=== PATIENT | male | born 1970 | race Caucasian/White ===

== ENCOUNTER 2017-01-10 17:42 | Emergency (ER) | payer OTHER ==
[2017-01-10 17:58] VITALS: RESP 16
--- NOTE | 2017-01-10 18:15 | EDPHY ---
H & P Stated Complaint: syncope Time Seen by Provider: 01/10/17 18:15 - Personal History Current Tetanus Diphtheria and Acellular Pertussis (TDAP): Yes - Medical/Surgical History Hx Asthma: No Hx Chronic Respiratory Disease: No Hx Diabetes: No Hx Cardiac Disease: No Hx Renal Disease: No Hx Cirrhosis: No Hx Alcoholism: No Hx HIV/AIDS: No Hx Splenectomy or Spleen Trauma: No Other PMH: L ACL repair - Social History Smoking Status: Never smoked Constitutional: Initial Vital Signs Temperature (C) 36.5 C 01/10/17 17:55 Heart Rate 81 01/10/17 17:55 Respiratory Rate 16 01/10/17 17:55 Blood Pressure 142/73 H 01/10/17 17:55 O2 Sat (%) 98 01/10/17 17:55 O2 Delivery Mode Room Air Allergies/Adverse Reactions: No Known Allergies Allergy (Verified 01/10/17 17:54) Home Medications: Medication Instructions Recorded NK [No Known Home Meds] 01/10/17 Medical Decision Making ED Course/Re-evaluation: CHIEF COMPLAINT: Syncope HISTORY OF PRESENT ILLNESS: The patient is a 46 y/o male arriving with his after a syncopal event while sitting at an [employer]. He has a history of one previous vasovagal syncope when he stood up quickly while hiking. 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 He regained consciousness quickly and was not confused following the syncope. He denies associated chest pain or dyspnea at any point. He reports he has not eaten or drank much water today and he had a recent left knee surgery about 4 weeks ago. He denies any narcotic pain medication or other medication use. REVIEW OF SYSTEMS: A 10 point review of systems was performed and is negative with the exception of the elements mentioned in the history of present illness. PHYSICAL EXAM: HR, BP, O2 Sat, RR. Temp noted General Appearance: Alert, well hydrated, appropriate, and non-toxic appearing. Head: Atraumatic without scalp tenderness or obvious injury Eyes: Pupils equal, round, reactive to light and accommodation, EOMI, no trauma , no injection. Ears: Clear bilaterally, no perforation, normal landmarks Nose: Atraumatic, no rhinorrhea, clear. Throat: There is no erythema or exudates, no lesions, normal tonsils, mucus membranes moist. Neck: Supple, nontender, no lymphadenopathy. Respiratory: No retractions, no distress, no wheezes, and no accessory muscle use. Lungs are clear to auscultation bilaterally. Cardiovascular: Regular rate and rhythm, no murmurs, rubs, or gallops. Good capillary refill all extremities. Gastrointestinal: Abdomen is soft, nontender, non-distended, no masses, no rebound, no guarding, no peritoneal signs. Musculoskeletal: Left knee incision is clean, dry, and intact; some swelling around knee that patient reports is unchanged; ROM voluntarily limited. Otherwise normal active ROM of all extremities, atraumatic. Neurological: Alert, appropriate, and interactive. The patient has normal DTRs and non-focal cranial nerves, motor, sensory, and cerebellar exam. Skin: No rashes, good turgor, no nodules on palpation. Past medical history: Previous vasovagal syncope Past surgical history: Left knee ACL and meniscus repair 12/13/16 in [place] Family history: noncontributory Social history: at bedside, has daughter DIAGNOSTICS/PROCEDURES/CRITICAL CARE TIME: The 12 lead EKG was interpreted by myself. Sinus rhythm rate 74. See hard copy and/or "tracemaster" electronic copy for interpretation. DIFFERENTIAL DIAGNOSIS: The differential diagnosis for the patient's syncope included but was not limited to vasovagal syncope, arrhythmia, dehydration, cardiogenic causes, neurogenic causes, and blood loss. MEDICAL DECISION MAKING: This is a healthy 46 y/o male who presents in good condition after a reported syncope. Notably, he describes prodromal symptoms prior to episode and has had a similar event once before that was attributed to a vasovagal syncope. His exam is unremarkable except for a healing surgical incision and knee swelling secondary to his recent ACL surgery. Plan for IV, CBC, CHEM, troponin, and Mg. EKG ordered. EKG is unremarkable. Labs show leukocytosis that is likely secondary to his recent surgery. I discussed workup results with him and answered all his questions. He will be discharged home with recommendation to follow up with his PCP as well as return precautions. He is comfortable with this plan. - Data Points Laboratory Results: Laboratory Results 01/10/17 18:37 01/10/17 18:37 01/10/17 01/10/17 18:37 18:37 WBC 15.91 10^3/uL H 10^3/uL (3.80-9.50) RBC 4.51 10^6/uL 10^6/uL (4.40-6.38) Hgb 10.4 g/dL L g/dL (13.7-17.5) Hct 32.9 % L % (40.0-51.0) MCV 72.9 fL L fL (81.5-99.8) MCH 23.1 pg L pg (27.9-34.1) MCHC 31.6 g/dL L g/dL (32.4-36.7) RDW 17.3 % H % (11.5-15.2) Plt Count 387 10^3/uL 10^3/uL (150-400) MPV 8.9 fL fL (8.7-11.7) Neut % (Auto) 78.5 % H % (39.3-74.2) Lymph % (Auto) 11.0 % L % (15.0-45.0) [place] % (Auto) 7.7 % % (4.5-13.0) Eos % (Auto) 2.1 % % (0.6-7.6) Baso % (Auto) 0.4 % % (0.3-1.7) Nucleat RBC Rel Count 0.0 % % (0.0-0.2) Absolute Neuts (auto) 12.50 10^3/uL H 10^3/uL (1.70-6.50) Absolute Lymphs (auto) 1.75 10^3/uL 10^3/uL (1.00-3.00) Absolute Monos (auto) 1.22 10^3/uL H 10^3/uL (0.30-0.80) Absolute Eos (auto) 0.33 10^3/uL 10^3/uL (0.03-0.40) Absolute Basos (auto) 0.06 10^3/uL 10^3/uL (0.02-0.10) Absolute Nucleated RBC 0.00 10^3/uL 10^3/uL (0-0.01) Immature Gran % 0.3 % % (0.0-1.1) Immature Gran # 0.05 10^3/uL 10^3/uL (0.00-0.10) Sodium 137 mEq/L mEq/L (134-144) Potassium 4.2 mEq/L mEq/L (3.5-5.2) Chloride 103 mEq/L mEq/L (97-110) Carbon Dioxide 26 mEq/l mEq/l (22-31) Anion Gap 8 mEq/L mEq/L (8-16) BUN 15 mg/dL mg/dL (7-23) Creatinine 1.0 mg/dL mg/dL (0.7-1.3) Estimated GFR > 60 Glucose 84 mg/dL mg/dL (70-100) Calcium 9.5 mg/dL mg/dL (8.5-10.4) Magnesium 2.2 mg/dL mg/dL (1.6-2.3) Troponin I < 0.012 ng/mL ng/mL (0-0.034) Departure - Departure Disposition: Home, Routine, Self-Care Clinical Impression: Vasovagal syncope Leukocytosis Qualifiers: Leukocytosis type: other Qualified Code(s): D72.828 - Other elevated white blood cell count Condition: Good Instructions: Syncope (ED) Additional Instructions: Follow up with your primary care provider for symptoms not improved over the next 2-3 days. Return to the ED for repeated fainting, chest pain, shortness of breath, or other worsening of condition. Referrals: Gregory Correa MD [Primary Care Provider] - As per Instructions Report Scribed for: Manish Cedillo Report Scribed by: Nadiya De Date of Report: 01/10/17 Time of Report: 19:24
--- NOTE | 2017-01-10 18:22 | CPEKG ---
Heart Rate: 74 RR Interval: 811 P-R Interval: 152 QRSD Interval: 82 QT Interval: 364 QTC Interval: 404 P [place]: 62 QRS [place]: 55 T Wave [place]: 23 EKG Severity - NORMAL ECG - EKG Impression: SINUS RHYTHM Electronically Signed By: Manish Cedillo 10-Jan-2017 21:57:35
[2017-01-10 18:44] LABS: % IMMATURE GRANULYOCYTES 0.3 % (0.0-1.1); ABSOLUTE IMMATURE GRANULOCYTES 0.05 10^3/uL (0.00-0.10); ADD DIFF? NO; ADD MORPH? NO; ADD SCAN? NO; ATYPICAL LYMPHOCYTE FLAG 0 (0-99); FRAGMENT RBC FLAG 20 (0-99); HEMATOCRIT 32.9 % (40.0-51.0); HEMOGLOBIN 10.4 g/dL (13.7-17.5); LEFT SHIFT FLG 0 (0-99); LIPEMIA HEMOLYSIS FLAG 80 (0-99); MEAN CELL HEMOGLOBIN 23.1 pg (27.9-34.1); MEAN CELL HEMOGLOBIN CONCENTR. 31.6 g/dL (32.4-36.7); MEAN CELL VOLUME 72.9 fL (81.5-99.8); MEAN PLATELET VOLUME 8.9 fL (8.7-11.7); PLATELET CLUMPS FLAG 10 (0-99); PLATELET COUNT 387 10^3/uL (150-400); RED BLOOD CELL COUNT 4.51 10^6/uL (4.40-6.38); RED CELL DISTRIBUTION WIDTH 17.3 % (11.5-15.2)
[2017-01-10 18:59] LABS: ANION GAP 8 mEq/L (8-16); CALCIUM 9.5 mg/dL (8.5-10.4); CARBON DIOXIDE 26 mEq/l (22-31); CHLORIDE 103 mEq/L (97-110); GLOMERULAR FILTRATION RATE > 60; GLUCOSE 84 mg/dL (70-100); MAGNESIUM 2.2 mg/dL (1.6-2.3); POTASSIUM 4.2 mEq/L (3.5-5.2); SODIUM 137 mEq/L (134-144)
[2017-01-10 19:11] LABS: TROPONIN I < 0.012 ng/mL (0-0.034)
[2017-01-10 19:25] VITALS: BP 125/72; PULSE 75; TEMP 97.9; O2SAT 96
== END 2017-01-10 19:26 | disposition home or self-care (01) ==
DX: R55 Syncope and collapse (principal); D72.828 Other elevated white blood cell count

== ENCOUNTER 2018-01-29 14:11 | Observation (INO) | payer OTHER ==
--- NOTE | 2018-01-29 14:29 | CPEKG ---
Heart Rate: 77 RR Interval: 779 P-R Interval: 136 QRSD Interval: 82 QT Interval: 356 QTC Interval: 403 P [place]: 59 QRS [place]: 53 T Wave [place]: 23 EKG Severity - ABNORMAL ECG - EKG Impression: SINUS RHYTHM EKG Impression: MULTIPLE ATRIAL PREMATURE COMPLEXES Electronically Signed By: Mary Tidwell 29-Jan-2018 22:32:15
[2018-01-29 14:42] LABS: PLATELET COUNT 452 10^3/uL (150-400)
[2018-01-29] MEDS ORDERED: NS 1,000 ML IV ONE (14:49)
--- NOTE | 2018-01-29 14:55 | EDPHY ---
HPI/HX/ROS/PE/MDM Narrative: CHIEF COMPLAINT: Lightheaded, dizzy, fatigue HISTORY OF PRESENT ILLNESS: This patient is a 47 year old male complaining of lightheadedness and fatigue. He has history of internal hemorrhoids for the past 10 years with "bad episodes " of bleeding following bowel movements which occur every 6 months. These last about 4-5 days and bleeding is generally only present immediately following bowel movements. Two weeks ago, he was ill with upper respiratory symptoms. He began having episodes of rectal bleeding last week. This time, he has noted dripping blood up to five minutes after bowel movements. On Saturday, he felt very fatigued and lightheaded with any exertion. He continues to have some bleeding with bowel movements today. He denies hematuria, hemoptysis, hematemesis, melena, or abdominal pain. Denies history of ulcers or diverticulitis. No syncope. He does not take aspirin and is not otherwise anticoagulated. He has not followed up with GI or general surgery recently regarding these episodes. He denies known history of IBS or Crohn's disease. No fever, chills, chest pain, shortness of breath, palpitations, vomiting, diarrhea , urinary complaints, headache. REVIEW OF SYSTEMS: Aside from elements discussed in the HPI, a comprehensive 10-point review of systems was reviewed and is negative. PAST MEDICAL HISTORY: Plaque psoriasis (unmedicated). Knee surgery. SOCIAL HISTORY: . Lives in [place]. Self-employed. VITAL SIGNS: Reviewed by me GENERAL: Well-developed, well-nourished, resting comfortably in no respiratory distress. HEENT: Atraumatic. Eyes: No icterus, no injection. Pale conjunctiva Mouth: moist mucous membranes. Pale mucous membranes. No erythema or lesions. Neck: supple with no adenopathy. LUNGS: Clear to auscultation bilaterally, no wheezes, rhonchi or rales. CARDIAC: Regular rate and rhythm, no rubs, murmurs or gallops. ABDOMEN: Soft, nontender, nondistended, bowel sounds normal. RECTAL: No external blood noted. No external hemorrhoids noted. No stool in the vault. No melena on the glove. Rectal exam was nontender. BACK: No CVA tenderness. EXTREMITIES: No trauma. No edema. Range of motion is normal throughout. NEURO: Alert and oriented, grossly nonfocal. SKIN: Pale, Warm and dry, no rash. PSYCHIATRIC: Normal mentation, no agitation. Portions of this note were transcribed by a medical chief technician. I personally performed a history, physical exam, medical decision making, and confirmed accuracy of information the transcribed note. ED Course: 47 y/o male presents with lightheadedness and fatigue following one week of bleeding with bowel movements. No miryam blood noted on rectal exam. Plan for labs including CBC, chemistries, troponin, type and screen, occult blood. IV established. Plan to administer 1L IV NS. 14:50 Alerted by tech that patient's hematocrit is 19.9. Ordered packed red cells. Discussed blood product consent with patient and other options. He is concerned regarding blood transfusions and would prefer to avoid this if possible, but he agrees to it if necessary and has completed the consent. 15:[address] Steven, hospitalist. He accepts admission for severe anemia and rectal bleeding. 15:[address] Maharaj, rn managed care. He will consult and perform colonoscopy. Patient admitted under the care of Dr. Steven as above. MDM: Differential diagnosis of the patient's lightheadedness and near-syncope and rectal bleeding was considered including but not limited to anemia, bleeding internal hemorrhoids, lower GI bleeding, upper GI bleeding, cardiac ischemia. - Data Points Laboratory Results: Laboratory Results 01/29/18 14:31 01/29/18 14:31 01/29/18 01/29/18 01/29/18 15:01 14:35 14:31 WBC RBC Hgb POC Hgb 7.5 gm/dL L gm/dL (13.7-17.5) Hct POC Hct 22 % L % (40-51) MCV MCH MCHC RDW Plt Count MPV Neut % (Auto) Lymph % (Auto) [place] % (Auto) Eos % (Auto) Baso % (Auto) Nucleat RBC Rel Count Absolute Neuts (auto) Absolute Lymphs (auto) Absolute Monos (auto) Absolute Eos (auto) Absolute Basos (auto) Absolute Nucleated RBC Immature Gran % Immature Gran # Platelet Estimate Polychromasia Hypochromasia Microcytic Cells Oval Macrocytes Elliptocytes Schistocytes Smear Review By PT 13.8 SEC SEC (12.0-15.0) INR 1.04 (0.83-1.16) POC Sodium 137 mEq/L mEq/L (135-145) Sodium POC Potassium 3.6 mEq/L mEq/L (3.3-5.0) Potassium POC Chloride 103 mEq/L mEq/L (97-110) Chloride Carbon Dioxide Anion Gap POC BUN 10 mg/dL mg/dL (7-23) BUN Creatinine POC Creatinine 1.0 mg/dL mg/dL (0.7-1.3) Estimated GFR Glucose POC Glucose 118 mg/dL H mg/dL (70-100) Calcium Troponin I Stool Occult Bld Scrn POSITIVE H (NEGATIVE) Patient ABO/Rh Antibody Screen Crossmatch IS Only 01/29/18 01/29/18 01/29/18 14:31 14:31 14:31 WBC RBC Hgb POC Hgb Hct POC Hct MCV MCH MCHC RDW Plt Count MPV Neut % (Auto) Lymph % (Auto) [place] % (Auto) Eos % (Auto) Baso % (Auto) Nucleat RBC Rel Count Absolute Neuts (auto) Absolute Lymphs (auto) Absolute Monos (auto) Absolute Eos (auto) Absolute Basos (auto) Absolute Nucleated RBC Immature Gran % Immature Gran # Platelet Estimate Polychromasia Hypochromasia Microcytic Cells Oval Macrocytes Elliptocytes Schistocytes Smear Review By PT INR POC Sodium Sodium 137 mEq/L mEq/L (135-145) POC Potassium Potassium 4.0 mEq/L mEq/L (3.5-5.2) POC Chloride Chloride 103 mEq/L mEq/L (97-110) Carbon Dioxide 21 mEq/l L mEq/l (22-31) Anion Gap 13 mEq/L mEq/L (8-16) POC BUN BUN 11 mg/dL mg/dL (7-23) Creatinine 0.9 mg/dL mg/dL (0.7-1.3) POC Creatinine Estimated GFR > 60 Glucose 110 mg/dL H mg/dL (70-100) POC Glucose Calcium 8.8 mg/dL mg/dL (8.5-10.4) Troponin I < 0.012 ng/mL ng/mL (0.000-0.034) Stool Occult Bld Scrn Patient ABO/Rh O POSITIVE Antibody Screen NEGATIVE Crossmatch IS Only See Detail 01/29/18 14:31 WBC 15.01 10^3/uL H 10^3/uL (3.80-9.50) RBC 2.57 10^6/uL L 10^6/uL (4.40-6.38) Hgb 6.2 g/dL L g/dL (13.7-17.5) POC Hgb Hct 19.9 % L % (40.0-51.0) POC Hct MCV 77.4 fL L fL (81.5-99.8) MCH 24.1 pg L pg (27.9-34.1) MCHC 31.2 g/dL L g/dL (32.4-36.7) RDW 19.9 % H % (11.5-15.2) Plt Count 452 10^3/uL H 10^3/uL (150-400) MPV 8.7 fL fL (8.7-11.7) Neut % (Auto) 80.4 % H % (39.3-74.2) Lymph % (Auto) 12.9 % L % (15.0-45.0) [place] % (Auto) 5.7 % % (4.5-13.0) Eos % (Auto) 0.2 % L % (0.6-7.6) Baso % (Auto) 0.3 % % (0.3-1.7) Nucleat RBC Rel Count 0.1 % % (0.0-0.2) Absolute Neuts (auto) 12.08 10^3/uL H 10^3/uL (1.70-6.50) Absolute Lymphs (auto) 1.93 10^3/uL 10^3/uL (1.00-3.00) Absolute Monos (auto) 0.85 10^3/uL H 10^3/uL (0.30-0.80) Absolute Eos (auto) 0.03 10^3/uL 10^3/uL (0.03-0.40) Absolute Basos (auto) 0.05 10^3/uL 10^3/uL (0.02-0.10) Absolute Nucleated RBC 0.02 10^3/uL H 10^3/uL (0-0.01) Immature Gran % 0.5 % % (0.0-1.1) Immature Gran # 0.07 10^3/uL 10^3/uL (0.00-0.10) Platelet Estimate INCREASED H (ADEQ) Polychromasia 1+ H Hypochromasia 1+ H Microcytic Cells 3+ H Oval Macrocytes 2+ H Elliptocytes 1+ H Schistocytes 1+ H Smear Review By Taylor ARITA MD PT INR POC Sodium Sodium POC Potassium Potassium POC Chloride Chloride Carbon Dioxide Anion Gap POC BUN BUN Creatinine POC Creatinine Estimated GFR Glucose POC Glucose Calcium Troponin I Stool Occult Bld Scrn Patient ABO/Rh Antibody Screen Crossmatch IS Only Medications Given: Sodium Chloride (Ns) 1,000 mls @ 125 mls/hr IV CONT HETAL Stop: 07/28/18 15:29 Last Admin: 01/29/18 16:22 Dose: 1,000 mls Discontinued Medications Heparin Sodium (Porcine) (Heparin Injection) 0 unit IVP ONCE ONE PRN Reason: Protocol Stop: 01/29/18 17:09 Last Admin: 01/29/18 17:27 Dose: Not Given Sodium Chloride (Ns) 1,000 mls @ 0 mls/hr IV ONCE ONE; Wide Open PRN Reason: Protocol Stop: 01/29/18 14:50 Last Admin: 01/29/18 15:11 Dose: 1,000 mls Point of Care Test Results: 01/29/18 14:35 POC Sodium 137 POC Potassium 3.6 POC Chloride 103 POC BUN 10 POC Creatinine 1.0 POC Glucose 118 H General Time Seen by Provider: 01/29/18 14:48 Initial Vital Signs: Initial Vital Signs Temperature (C) 36.6 C 01/29/18 14:14 Heart Rate 88 01/29/18 14:14 Respiratory Rate 16 01/29/18 14:14 Blood Pressure 155/78 H 01/29/18 14:14 O2 Sat (%) 99 01/29/18 14:14 O2 Delivery Mode Room Air Allergies/Adverse Reactions: No Known Allergies Allergy (Verified 01/10/17 17:54) Home Medications: Medication Instructions Recorded NK [No Known Home Meds] 01/29/18 Departure - Departure Disposition: [facility] Clinical Impression: Rectal bleeding, Severe anemia Condition: Serious Report Scribed for: Mary Tidwell Report Scribed by: Maye Linares Date of Report: 01/29/18 Time of Report: 15:15
[2018-01-29] MEDS ORDERED: ONDANSETRON DISINTEGRATING 4 MG TAB PO PRN (15:19)
[2018-01-29] MEDS ORDERED: oxyCODONE IR 5 MG TAB PO PRN (15:19)
[2018-01-29] MEDS ORDERED: ACETAMINOPHEN 325 MG TAB PO PRN (15:19)
[2018-01-29] MEDS ORDERED: ONDANSETRON 4 MG/2 ML VIAL IVP PRN (15:19)
--- NOTE | 2018-01-29 15:33 | PDGENHP ---
History and Physical - Chief Complaint weakness, dizzyness - History of Present Illness 47 yo male with History of internal hemorrhoids for 10 years. p/w with rectal bleeding following bowel movements. He has "bad episodes" every 6 months with bleeding following bowel movements. This usually resolves after 4-5 days. Last week, had his usual bleeding following a BM. On Saturday, he felt very fatigued and lightheaded with exertion. He continues to have some bleeding with bowel movements today. He notices dripping blood up to five minutes after bowel movements. He was feeling weak and therefore presented to the E.D. In the E.D. he is noted to have a Hgb of 6.2. He is hoping not to get a blood transfusion and has refused one in the E.D. The E.D. is notifying GI. No hematuria, hemoptysis, hematemesis. No abdominal pain. Denies melena. Denies history of ulcers or diverticulitis. Denies any syncope. Does not take aspirin and is not otherwise anticoagulated. Has not followed up with GI or general surgery. Denies known history of IBS or Crohns. No fever, chills, chest pain, shortness of breath, palpitations, vomiting, diarrhea, urinary complaints, headache. PAST MEDICAL/SURGICAL HISTORY: Plaque psoriasis (unmedicated). Knee surgery. SOCIAL HISTORY: No T/E/I [facility]: [place] History Information - Allergies/Home Medication List Allergies/Adverse Reactions: No Known Allergies Allergy (Verified 01/10/17 17:54) Home Medications: NK [No Known Home Meds] 01/29/18 [Last Taken Unknown] I have personally reviewed and updated: medical history, social history - Social History Smoking Status: Never smoked Review of Systems Review of Systems: ROS: 10pt was reviewed & negative except for what was stated in HPI & below Physical Exam Physical Exam: Temp Pulse Resp BP Pulse Ox 36.6 C 88 16 155/78 H 99 01/29/18 14:14 01/29/18 14:14 01/29/18 14:14 01/29/18 14:14 01/29/18 14:14 Constitutional: no apparent distress Eyes: PERRL, EOMI Ears, Nose, Mouth, Throat: moist mucous membranes, hearing normal, ears appear normal Cardiovascular: regular rate and rhythym, No edema Respiratory: no respiratory distress, no rales or rhonchi, clear to auscultation Gastrointestinal: normoactive bowel sounds, soft, non-tender abdomen Genitourinary: no bladder fullness Skin: warm Neurologic: AAOx3 Psychiatric: interacting appropriately, not anxious, not encephalopathic Lymph, Heme, Immunologic: No petechiae Lab Data & Imaging Review 01/29/18 14:31 01/29/18 14:31 WBC 15.01 10^3/uL (3.80-9.50) H 01/29/18 14:31 RBC 2.57 10^6/uL (4.40-6.38) L 01/29/18 14:31 Hgb 6.2 g/dL (13.7-17.5) L 01/29/18 14:31 POC Hgb 7.5 gm/dL (13.7-17.5) L 01/29/18 14:35 Hct 19.9 % (40.0-51.0) L 01/29/18 14:31 POC Hct 22 % (40-51) L 01/29/18 14:35 MCV 77.4 fL (81.5-99.8) L 01/29/18 14:31 MCH 24.1 pg (27.9-34.1) L 01/29/18 14:31 MCHC 31.2 g/dL (32.4-36.7) L 01/29/18 14:31 RDW 19.9 % (11.5-15.2) H 01/29/18 14:31 Plt Count 452 10^3/uL (150-400) H 01/29/18 14:31 MPV 8.7 fL (8.7-11.7) 01/29/18 14:31 Neut % (Auto) 80.4 % (39.3-74.2) H 01/29/18 14:31 Lymph % (Auto) 12.9 % (15.0-45.0) L 01/29/18 14:31 [place] % (Auto) 5.7 % (4.5-13.0) 01/29/18 14:31 Eos % (Auto) 0.2 % (0.6-7.6) L 01/29/18 14:31 Baso % (Auto) 0.3 % (0.3-1.7) 01/29/18 14:31 Nucleat RBC Rel Count 0.1 % (0.0-0.2) 01/29/18 14:31 Absolute Neuts (auto) 12.08 10^3/uL (1.70-6.50) H 01/29/18 14:31 Absolute Lymphs (auto) 1.93 10^3/uL (1.00-3.00) 01/29/18 14:31 Absolute Monos (auto) 0.85 10^3/uL (0.30-0.80) H 01/29/18 14:31 Absolute Eos (auto) 0.03 10^3/uL (0.03-0.40) 01/29/18 14:31 Absolute Basos (auto) 0.05 10^3/uL (0.02-0.10) 01/29/18 14:31 Absolute Nucleated RBC 0.02 10^3/uL (0-0.01) H 01/29/18 14: Immature Gran % 0.5 % (0.0-1.1) 01/29/18 14: Immature Gran # 0.07 10^3/uL (0.00-0.10) 01/29/18 14:31 POC Sodium 137 mEq/L (135-145) 01/29/18 14:35 Sodium 137 mEq/L (135-145) 01/29/18 14:31 POC Potassium 3.6 mEq/L (3.3-5.0) 01/29/18 14:35 Potassium 4.0 mEq/L (3.5-5.2) 01/29/18 14:31 POC Chloride 103 mEq/L (97-110) 01/29/18 14:35 Chloride 103 mEq/L (97-110) 01/29/18 14:31 Carbon Dioxide 21 mEq/l (22-31) L 01/29/18 14:31 Anion Gap 13 mEq/L (8-16) 01/29/18 14:31 POC BUN 10 mg/dL (7-23) 01/29/18 14:35 BUN 11 mg/dL (7-23) 01/29/18 14:31 Creatinine 0.9 mg/dL (0.7-1.3) 01/29/18 14:31 POC Creatinine 1.0 mg/dL (0.7-1.3) 01/29/18 14:35 Estimated GFR > 60 01/29/18 14:31 Glucose 110 mg/dL (70-100) H 01/29/18 14:31 POC Glucose 118 mg/dL (70-100) H 01/29/18 14:35 Calcium 8.8 mg/dL (8.5-10.4) 01/29/18 14:31 Troponin I < 0.012 ng/mL (0.000-0.034) 01/29/18 14:31 Stool Occult Bld Scrn POSITIVE (NEGATIVE) H 01/29/18 15:01 Patient ABO/Rh O POSITIVE 01/29/18 14:31 Antibody Screen NEGATIVE 01/29/18 14:31 Crossmatch IS Only See Detail 01/29/18 14:31 Assessment & Plan Assessment: #Acute blood loss anemia #GI Bleed in setting of hx of internal hemorrhoids #Leukocytosis, reactive #Thrombocytosis, reactive #Gen Weakness Plan: He is hoping to hold of on PRBC, if further drop, he will be reconsider, but continues to not be agreeable to a transfusion at this time serial H/H GI consult pending NPO IVF check stat INR SCD's Full code He will be admitted to our Step down unit total critical care time on this patient with acute blood loss anemia who is symptomatic and significant anemia is 50 minutes.
[2018-01-29 15:38] LABS: INR 1.04 (0.83-1.16); PROTIME(PATIENT) 13.8 SEC (12.0-15.0)
[2018-01-29] MEDS: NS 1,000 ML IV SCH (16:22)
[2018-01-29] MEDS ORDERED: HEPARIN 10,000 UNIT/10 ML MDV (1,000 UNIT/ML) IVP ONE (17:08)
[2018-01-29] MEDS ORDERED: HEPARIN 10,000 UNIT/10 ML MDV (1,000 UNIT/ML) IVP PRN (17:08)
[2018-01-29] MEDS ORDERED: NITROGLYCERIN 0.4 MG BTL SL PRN (17:09)
[2018-01-29] MEDS ORDERED: HEPARIN/DEXTROSE 500 ML IV SCH (17:15)
[2018-01-29] MEDS ORDERED: METOPROLOL TARTRATE 25 MG TAB PO SCH (21:00)
[2018-01-29] MEDS ORDERED: PEG 3350/NA SULF,BICARB,CL/KCL (GAVILYTE-G) 4000 ML BTL PO ONE (22:00)
[2018-01-30] MEDS: NS 1,000 ML IV SCH (00:18)
[2018-01-30 05:41] LABS: PLATELET COUNT 316 10^3/uL (150-400)
[2018-01-30] MEDS ORDERED: PROPOFOL/EMULSION 500 MG/50 ML BOTTLE IV ONE (08:07)
[2018-01-30] MEDS ORDERED: MIDAZOLAM 2 MG/2 ML VIAL ONE (08:08)
[2018-01-30] MEDS ORDERED: LIDOCAINE 2% 5 ML SDV ONE (08:17)
--- NOTE | 2018-01-30 08:23 | GCON ---
[f rep st] CONSULTATION DATE OF CONSULTATION: 01/30/2018 REFERRING PHYSICIAN: Gregory Steven MD Dear Dr. Steven: Thank you very kindly for asking me to evaluate Mr. Medley in consultation for a chief complaint of hematochezia. He is a very pleasant 47-year-old gentleman without significant past medical history other than episo dic and chronic lower gastrointestinal bleeding that has been present perhaps over 10, or even 15 yea rs. He presented to the emergency room yesterday mostly because of weakness, fatigue, and an inabili ty to perform his daily functions, mostly because of low energy and dizziness. In the emergency room , he was found to have a hematocrit of 17.9. Mr. Medley has reported a recent episode of 10 days o f heavy rectal bleeding. These events recently have been very similar to ones he has had in the past . Usually, he will have significant bleeding spells usually about once or twice a month. They usual ly last between 5 to 10 days. The bleeding can be either small volume and on the toilet paper and as sociated with mild anal rectal discomfort or can be more heavy, describing actually dripping and squi rting of blood into the toilet bowl that seems very large volume. There is generally no pain in the anorectal area or abdominal area with the more heavy bleeding. With the smaller amounts of bleeding, usually a passage of stool or wiping the anorectal area will cause discomfort. He does note sometime s hemorrhoidal prolapse. He has had a previous hemorrhoidal banding during a colonoscopy about 10 ye ars ago and reports that they saw "a lesion" and hemorrhoids. The hemorrhoids were banded and he luo s not remember more about the lesion. He denies any hematemesis or melena. He is not on any blood t hinners. I am asked to assist with further evaluation and management of this problem. PAST MEDICAL AND PAST SURGICAL HISTORY: 1. History of internal hemorrhoids with banding. 2. Recurrent hematochezia attributed to hemorrhoidal disease. 3. Bilateral inguinal hernias with repair. 4. ACL repair to the right knee. MEDICATIONS ON ADMISSION: None. ALLERGIES: None. SOCIAL HISTORY: The patient lives in [place]. He is . He has one 8-year-old daughter. 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 No tobacco. No alcohol. No substance abuse. FAMILY HISTORY: Negative for bleeding disorders, colon cancer or colitis. REVIEW OF SYSTEMS: CONSTITUTIONAL: He has been weak and fatigued and somewhat dizzy. No fevers. D enies night sweats, weight loss, or anorexia. HEENT: Reports some dizziness, especially with position al change. No headache. No visual disturbances. PULMONARY: No cough or shortness of breath. CARDIOV ASCULAR: No palpitations, chest pain or syncope. GASTROINTESTINAL: Negative other than HPI including an absence of heartburn, dysphagia, nausea, vomiting, or weight loss. He denies any change in bowel habits. His stools are usually normal in color and formed. RHEUMATOLOGIC: Denies any joint pain, sw elling, or deformity. NEUROLOGIC: Denies paresthesias, falls or weakness. DERMATOLOGIC: No rash or ja undice. HEMATOLOGIC: No epistaxis or bruising. LYMPH: Denies any adenopathy. PSYCHIATRIC: Negative f or depression, anxiety or insomnia. ENDOCRINE: No heat or cold intolerance. GENITOURINARY: Denies dys uria, hematuria, or flank pain. DATABASE: Blood pressure 104/48, pulse has been 77 to 83, respirations are 12 to 18, oxygenation is 96% on room air, temperature is 37.1. GENERAL: Healthy appearing male in no acute distress. HEENT: Normocephalic, atraumatic. Oropharynx clear. NECK: Supple. No adenopathy. No thyromegaly. No ju gular venous distention. PULMONARY: Clear to auscultation bilaterally. CARDIOVASCULAR: Regular ra te and rhythm without murmur, rub, or gallop. GASTROINTESTINAL: Abdomen is nondistended. Bowel sound s are normal. No tenderness, rebound, or guarding. No ascites. No abdominal bruit. No palpable ma ss or lesion. There are bilateral inguinal hernia scars that are well healed. MUSCULOSKELETAL: Nor mal gait and station without clubbing or cyanosis. No palmar erythema. No joint deformity. DERMATO LOGIC: Warm without jaundice, rash, or lesion. NEUROLOGIC: Alert to person, place, and time. Speec h is normal. Mood is appropriate. Motor nonfocal. Gait not ataxic. LABORATORY DATA: Database includes the following: White blood count is 11.3, hematocrit is 22.5 afte r 2 units of packed red blood cells. MCV 77.6. Admission H and H has a hemoglobin of 5.6 and a hemat ocrit of 17.9. Chemistries: Sodium 145, potassium 4.0, chloride 111, bicarbonate is 24, BUN is 8, cr eatinine is 0.8, glucose 99, calcium 8.3, troponin less than 0.012. IMPRESSION: 1. Hematochezia. 2. 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 3. Microcytic anemia, again likely iron deficiency and due to the above problem, which is chronic lo ss. 4. History of internal hemorrhoids with previous banding. 5. Anorectal discomfort with what sounds like an anal fissure. RECOMMENDATIONS: 1. Agree with transfusion of 2 units of packed red blood cells. 2. Monitor hematocrit q.8 hours. 3. Clear liquid diet and then n.p.o. after midnight. 4. One gallon of GoLYTELY bowel prep with a colonoscopy planned tomorrow to evaluate his bleeding. 5. If there is no other etiology for the bleeding found other than hemorrhoidal burden, then a surgi gerson consultation will be arranged due to the severity, duration, and chronicity of the bleeding. 6. Alternative therapy such as hemorrhoidal banding was discussed and we can decide if he does not w kole to pursue a surgical management plan whether hemorrhoidal banding would be appropriate for him to help control his symptoms. 7. He will need outpatient iron supplementation and I would recommend receiving intravenous iron pos t colonoscopy procedure prior to discharge if everything is stable. 8. Further recommendations to follow. I have discussed this plan in detail with Dr. Steven today who has helped me in arranging for trans fusion and coordinating care. Thank you very kindly for allowing me to be involved in this patient's medical management. Further r ecommendations to follow. /[id number]/MODL
[2018-01-30] MEDS ORDERED: PROPOFOL 200 MG/20 ML VIAL ONE (08:26)
[2018-01-30] MEDS ORDERED: fentaNYL 100 MCG/2 ML INJ ONE (08:28)
[2018-01-30] MEDS ORDERED: SODIUM FERRIC GLUCONAT/SUCROSE 125 MG in NS 100 ML IV ONE (08:51)
--- NOTE | 2018-01-30 08:51 | GIREPORT ---
[facility] Surgical Services - Endoscopy Department Patient Name: Ino Vu Procedure Date: 01/30/2018 7:35 AM Patient Type: Inpatient Attending MD/ ER Physician: Ino Maharaj MD Procedure: Colonoscopy Indications: Hematochezia, Iron deficiency anemia secondary to chronic blood loss Providers: Ino Maharaj MD Medicines: Propofol per Anesthesia Complications: No immediate complications. Description of Procedure: After obtaining informed consent, the scope was passed under direct vis ion. Throughout the procedure, the patient's blood pressure, pulse, and oxyg en saturations were monitored continuously. The Colonoscope with irrigatio n channel was introduced through the anus and advanced to the cecum, identified by appendiceal orifice and ileocecal valve. The colonoscopy was performed without difficulty. The patient tolerated the procedure well. The quality of the bowel preparation was excellent. The ileocecal valve, appendiceal orifice, and rectum were photographed. Findings: The perianal and digital rectal examinations were normal. Pertinent negatives include normal sphincter tone, no palpable rectal lesions and normal prostate (size, shape, and consistency). External and internal hemorrhoids were found during retroflexion. The hemorrhoids were moderate. Estimated Blood Loss: Estimated blood loss: none. Post Op Diagnosis: - External and internal hemorrhoids. - No specimens collected. Recommendation: - Repeat colonoscopy in 10 years for screening purposes. - Iron infusion today - Advance diet as tolerated - Oral iron supplement as outpatient - Arrange for hemorrhoidal banding as outpatient in the next 2-4 weeks to treat the symptomatic hemorrhoid bleeding - Anusol HC suppositories 1 [place] BID for 2 wks - Benefiber 1 tablespoon daily - Sitz baths for 15min qhs for 2 wks during the suppository treatment - [facility] day. - Thank you for allowing me to be involved in the care of your patient. Attending Participation: I personally performed the entire procedure without the assistance of a fellow, resident or surg ical patient services assistant. Ino Maharaj MD Ino Maharaj MD 01/30/2018 8:50:24 AM This report has been signed electronicallyDavid MD Carol Ann Number of Addenda: 0 Note Initiated On: 01/30/2018 7:35 AM Total Procedure Duration Time 0 hours 28 minutes 49 seconds [email or web address]
[2018-01-30] MEDS ORDERED: NALOXONE HCL 0.4 MG/ML INJ IVP PRN (08:56)
[2018-01-30] MEDS ORDERED: LR 500 ML IV PRN (08:56)
[2018-01-30] MEDS ORDERED: METOCLOPRAMIDE 10 MG/2 ML VIAL IVP PRN (08:56)
[2018-01-30] MEDS ORDERED: ALBUTEROL 3 ML DEYVIAL IH PRN (08:56)
[2018-01-30] MEDS ORDERED: ONDANSETRON 4 MG/2 ML VIAL IVP PRN (08:56)
[2018-01-30] MEDS ORDERED: DEXAMETHASONE 4 MG/ML VIAL IVP PRN (08:56)
[2018-01-30] MEDS ORDERED: fentaNYL 100 MCG/2 ML INJ IVP PRN (08:56)
--- NOTE | 2018-01-30 08:56 | PDANEPAE ---
ANE Past Medical History - Pulmonary History Hx Oxygen in Use at Home: No Hx Sleep Apnea: No Sleep Apnea Screening Result - Last Documented: Negative - Endocrine History Hx Diabetes: No - Chronic Pain History Chronic Pain: No ANE Review of Systems Review of Systems: ANE Patient History - Allergies Allergies/Adverse Reactions: No Known Allergies Allergy (Verified 01/10/17 17:54) - Home Medications Home Medications: NK [No Known Home Meds] 01/29/18 [Last Taken Unknown] - NPO status NPO Since - Liquids (Date): 01/29/18 NPO Since - Liquids (Time): 13:00 NPO Since - Solids (Date): 01/29/18 NPO Since - Solids (Time): 12:30 - Smoking Hx Smoking Status: Never smoked ANE Labs/Vital Signs - Labs Result Diagrams: 01/30/18 05:17 01/30/18 05:17 - Vital Signs Blood Pressure: 104/58 Heart Rate: 77 Respiratory Rate: 12 O2 Sat (%): 96 Height: 177.8 cm Weight: 90.718 kg ANE Physical Exam - Airway Neck exam: FROM Mallampati Score: Class 1 Mouth exam: normal dental/mouth exam - Pulmonary Pulmonary: no respiratory distress, no rales or rhonchi, clear to auscultation - Cardiovascular Cardiovascular: regular rate and rhythym, no murmur, rub, or gallop - ASA Status ASA Status: III ANE Anesthesia Plan Anesthesia Plan: GA with mask
--- NOTE | 2018-01-30 08:58 | POSTANESTH ---
Post Anesthetic Evaluation Respiratory Status: Normal, Stable Level of Consciousness/Mental Status: Can Participate in Eval Pain Control: Adequate, Prn Tx Ordered Nausea/Vomiting Control: Adequate, Prn Tx Ordered Complications Possibly Related to Anesthesia: None Noted
--- NOTE | 2018-01-30 10:16 | PDDCSUM ---
Discharge Summary Discharge Summary: DISCHARGE DIAGNOSES: -acute recurrent lower GI bleed -severe syptomatic iron deficiency anemia worsened acutely by hemorrhagic anemia , requiring transfusion; chronic iron deficiency is identified on review of records at this time -hemorrhoids as cause of recurrent lower gi bleed CONSULTANTS: Dr. Ino Maharaj PROCEDURES: Colonoscopy Transfusion of packed red blood cells HOSPITAL COURSE SUMMARY: This patient who has had numerous episodes of significant lower gi bleed of suspected hemorrhoid etiology, came in with severe symptomatic anemia and ongoing lower gi bleed w bright red blood. His Hg was 5, but are now improved and so far stable after transfusion. He underwent colonoscopy which shows hemorrhoids but no other pathology, no proximal signs of blood. He is felt to have chronic recurrent severe hemorrhoidal bleeding. His blood work is consistant with iron deficiency anemia of gi origin. He is given some IV iron replacement now, and will continue on oral iron replacement as outpt along with vitamin-C. I did review her past records with outpatient blood testing these done over the last 2 years and he actually has had microcytosis and anemia over the last 2 years consistent with ongoing chronic iron deficiency related to his recurrent episodes of bleeding. At this point is clearly indicated that he have definitive therapy for his hemorrhoid care. I have reviewed this with Dr. Maharaj in the plan will either be for repeated banding and close follow up or referral to a surgeon which Dr. Maharaj will decide with the patient for further discussion. PENDING TEST RESULTS: None MEDICATION CHANGES: Addition of iron sulfate 325 mg twice daily along with vitamin-C FOLLOW-UP PLAN: With Dr. Maharaj within 1 week The patient is instructed to follow up urgently for medical attention if he has ongoing bleeding that does not probably stop, or becomes lightheaded, short of breath or other concerning symptoms Greater than 35 minutes bedside and care coordination time today
[2018-01-30 12:26] VITALS: BP 121/60
[2018-01-30] MEDS ORDERED: ASCORBIC ACID 250 MG TAB PO SCH (21:00)
[2018-01-30] MEDS ORDERED: FERROUS SULFATE 325 MG TAB PO SCH (21:00)
== END 2018-01-30 16:09 | disposition home or self-care (01) ==
LOC: INTOOBSV 15:23 → F2N 16:17
PROVIDERS: ADMIT Family Medicine; ATTEND Family Medicine
PROC: 0DJD8ZZ Inspection of Lower Intestinal Tract, Via Natural or Artificial Opening Endoscopic (ICD-10-PCS; principal; 2018-01-29)
PROC: 30233N1 Transfusion of Nonautologous Red Blood Cells into Peripheral Vein, Percutaneous Approach (ICD-10-PCS; 2018-01-29)
DX: K92.2 Gastrointestinal hemorrhage, unspecified (principal); D50.9 Iron deficiency anemia, unspecified; K64.9 Unspecified hemorrhoids
CPT/HCPCS: 36430; 45378; 93005; 99285; G0378; P9016; 82947-QW; J2250; J2704; J2916; J3010